=== PATIENT | male | born 1945 | race Caucasian/White ===

== ENCOUNTER 2024-06-08 17:34 | Observation (INO) | payer MEDICARE ==
[~2024-06-08] VITALS: Ht 182.9 cm; Wt 73.0 kg
[2024-06-08] VITALS (8 sets, daily range): BP systolic 130–157; BP diastolic 61–81
[2024-06-08 18:15] LABS: BASO% 0.6 % (0-3); EOS% 1.4 % (0-8); HEMATOCRIT 32.9 % (39.0-50.0); HEMOGLOBIN 10.7 g/dl (14.0-18.0); IMMATURE GRANULOCYTES 0.2 % (0.0-5.0); LYMPH% 18.2 % (15-41); MEAN CELL VOLUME 110.4 fL CALC (80.0-100.0); MEAN CORPUSCULAR HGB 35.9 pG CALC (26.0-32.0); MEAN CORPUSCULAR HGB CONC 32.5 g/dL CAL (32.0-36.0); MONO% 9.6 % (2-13); NEUT# 3.59 thou/uL (1.82-7.42); RED BLOOD COUNT 2.98 mill/uL (4.70-6.10)
[2024-06-08 18:24] LABS: ALBUMIN 3.4 g/dL (3.2-5.0); BILIRUBIN, TOTAL 0.7 mg/dL (0.2-1.3); CREATININE 1.3 mg/dL (0.7-1.3); POTASSIUM 3.9 mmol/l (3.5-5.1); TOTAL PROTEIN 5.8 g/dL (6.3-8.2)
[2024-06-08] MEDS ORDERED: Diph, Acellular Pertussis, Tet 0.5 ML/VIAL (Tdap) SDV IM ONE (18:45)
[2024-06-08] MEDS ORDERED: ceFAZolin Sodium 1 GM in SODIUM CHLORIDE 0.9% 50 ML IV ONE (20:00)
[2024-06-08] MEDS ORDERED: ACETAMINOPHEN 325 MG/TAB PO PRN (20:15)
[2024-06-08] MEDS ORDERED: MAGNESIUM HYDROXIDE 30 ML UDC PO PRN (20:15)
[2024-06-08] MEDS ORDERED: LACTATED RINGER'S 1,000 ML IV PRN (20:15)
[2024-06-08] MEDS ORDERED: METOPROLOL TARTRATE 25 MG/TAB PO SCH (21:00)
[2024-06-08] MEDS ORDERED: ENOXAPARIN SODIUM 40 MG/0.4 ML SYR SC SCH (21:00)
[2024-06-09] VITALS (10 sets, daily range): BP systolic 90–170; BP diastolic 30–68
[2024-06-09 03:03] LABS: URINE BILIRUBIN - DIPSTICK Negative (NEGATIVE); URINE BLOOD DIPSTICK Negative (NEGATIVE); URINE GLUCOSE - DIPSTICK Negative (NEGATIVE); URINE KETONE Trace mg/dL (NEGATIVE); URINE LEUK ESTERASE Negative (NEGATIVE); URINE NITRITE - DIPSTICK Negative (Negative); URINE PH 5.5 (4.5-8.0); URINE PROTEIN - DIPSTICK Trace mg/dL (NEG-TRACE); URINE SPECIFIC GRAVITY 1.025; URINE UROBILINOGEN - DIPSTICK 0.2 E.U./dL (0.2)
[2024-06-09 03:04] LABS: URINE COLOR Yellow
[2024-06-09 05:56] LABS: BASO% 0.4 % (0-3); EOS% 2.2 % (0-8); HEMOGLOBIN 10.8 g/dl (14.0-18.0); IMMATURE GRANULOCYTES 0.1 % (0.0-5.0); LYMPH% 14.8 % (15-41); MEAN CELL VOLUME 110.4 fL CALC (80.0-100.0); MEAN CORPUSCULAR HGB 36.1 pG CALC (26.0-32.0); MEAN CORPUSCULAR HGB CONC 32.7 g/dL CAL (32.0-36.0); MONO% 9.9 % (2-13); NEUT# 5.04 thou/uL (1.82-7.42); NEUT% 72.6 % (42-76); RED BLOOD COUNT 2.99 mill/uL (4.70-6.10)
[2024-06-09] MEDS ORDERED: ceFAZolin Sodium 1 GM in SODIUM CHLORIDE 0.9% 50 ML IV SCH ×2 (06:00→14:00)
[2024-06-09] MEDS ORDERED: VANCOMYCIN HCL 1 GM in SODIUM CHLORIDE 0.9% 250 ML IV SCH (06:00)
[2024-06-09 06:25] LABS: CHOLESTEROL HDL RATIO 2.1 (<4.4 (CALC)); CREATININE 1.2 mg/dL (0.7-1.3); POTASSIUM 4.1 mmol/l (3.5-5.1); TOTAL PROTEIN 4.8 g/dL (6.3-8.2)
[2024-06-09 06:31] LABS: ALBUMIN 2.6 g/dL (3.2-5.0); BILIRUBIN, TOTAL 0.3 mg/dL (0.2-1.3)
[2024-06-09] MEDS ORDERED: CYANOCOBALAMIN 500 MCG/TAB ( B12) PO SCH (13:06)
[2024-06-09] MEDS ORDERED: VIBRAMYCIN100 M2 PO (13:27)
[2024-06-09] MEDS ORDERED: VITAMIN B-121000 MCG PO (13:28)
[2024-06-09] MEDS ORDERED: FERROUS SULFAT325 MG PO (13:29)
[2024-06-09] MEDS ORDERED: DOXYCYCLINE HYCLATE 100 MG/CAP PO SCH (13:30)
[2024-06-09] MEDS ORDERED: CYANOCOBALAMIN 1000 MCG/ML IM SCH (14:00)
[2024-06-09] MEDS ORDERED: DOXYCYCLINE HYCLATE 100 MG in SODIUM CHLORIDE 0.9% 100 ML IV SCH (21:00)
[2024-06-10] VITALS (10 sets, daily range): BP systolic 114–134; BP diastolic 37–58
[2024-06-10 05:16] LABS: BASO% 0.3 % (0-3); EOS% 2.3 % (0-8); HEMATOCRIT 33.1 % (39.0-50.0); HEMOGLOBIN 10.6 g/dl (14.0-18.0); IMMATURE GRANULOCYTES 0.2 % (0.0-5.0); LYMPH% 15.6 % (15-41); MEAN CELL VOLUME 111.4 fL CALC (80.0-100.0); MEAN CORPUSCULAR HGB 35.7 pG CALC (26.0-32.0); MONO% 10.2 % (2-13); NEUT# 4.4 thou/uL (1.82-7.42); NEUT% 71.4 % (42-76); RED BLOOD COUNT 2.97 mill/uL (4.70-6.10); RED CELL DISTRI WIDTH 12.9 % (11.5-15.5)
[2024-06-10 05:43] LABS: ALBUMIN 2.6 g/dL (3.2-5.0); BILIRUBIN, TOTAL 0.3 mg/dL (0.2-1.3); CREATININE 1.1 mg/dL (0.7-1.3); MAGNESIUM 1.9 mg/dL (1.6-2.3); POTASSIUM 4.1 mmol/l (3.5-5.1); TOTAL PROTEIN 4.7 g/dL (6.3-8.2)
[2024-06-10] MEDS ORDERED: MULTIPLE VITAMIN TABLET PO SCH (09:00)
[2024-06-10] MEDS ORDERED: FERROUS SULFATE 325 MG/TAB PO SCH (09:00)
== END 2024-06-10 18:33 | disposition home or self-care (01) ==
LOC: ED 17:34 → ED-I 19:46 → ED 20:01 → MS2 20:02
PROVIDERS: Nurse Practitioner Family; ADMIT Student in an Organized Health Care Education/Training Program; ATTEND Student in an Organized Health Care Education/Training Program
DX: R55 Syncope and collapse (principal); L03.116 Cellulitis of left lower limb; L03.115 Cellulitis of right lower limb; D50.9 Iron deficiency anemia, unspecified; D51.9 Vitamin B12 deficiency anemia, unspecified; N18.9 Chronic kidney disease, unspecified; F17.210 Nicotine dependence, cigarettes, uncomplicated; I87.2 Venous insufficiency (chronic) (peripheral); S80.811A Abrasion, right lower leg, initial encounter; W19.XXXA Unspecified fall, initial encounter; Y92.009 Unspecified place in unspecified non-institutional (private) residence as the place of occurrence of the external cause
CPT/HCPCS: G0378; J1650; J3420